=== PATIENT | female | born 1945 | race Caucasian/White ===

== ENCOUNTER → 2016-12-18 | Outpatient (CLI) | payer BC ==
[~2016-12-18] MED LIST: BRIN3SUS OPL; CHOL100027 PO; LATA0.009 OPB; TIMO0.05 OPL
[2016-12-18 09:58] LABS: ESTIMATED AVERAGE GLUCOSE 120 mg/dl; HA1C FLAG Normal (Normal)
== END | disposition home or self-care (01) ==
LOC: C.LAB1850 08:25
PROVIDERS: ATTEND Internal Medicine
DX: R73.01 Impaired fasting glucose (principal)

== ENCOUNTER → 2017-03-07 | Day surgery (SDC) | payer BC ==
[2017-02-28 08:10] VITALS: Ht 170.2 cm; Wt 61.4 kg
[~2017-03-07] VITALS: Ht 170.2 cm; Wt 61.4 kg
[~2017-03-07] MED LIST changes: -BRIN3SUS OPL; +LIDOCAINE HCL 2% 2 ML VIAL (20MG/ML) ONE; +PROPOFOL IV EMULSION 10 MG/ML 20 ML VIAL IV ONE; +SODIUM CHLORIDE 0.9% 500ML 500 ML IV ONE; +[UNRECOGNIZED DRUG - OTHER] INH
--- NOTE | 2017-03-07 10:25 | Endo History and Physical ---
History & Physical Date of Service: Mar 07, 2017. Chief Complaint: Screening Referring Physician: Dr. Naqvi History of Present Illness 71 yo CF who presents for screening colonoscopy. Past Surgical History Hx Cardiac Surgery: No Hx Internal Defibrillator: No Hx Pacemaker: No Hx Abdominal Surgery: No Hx of Implantable Prosthesis: No Hx Post-Op Nausea and Vomiting: No Hx Cancer Surgery: Yes (BILATERAL MASTECTOMY) Hx Thoracic Surgery: No Hx Orthopedic: No Hx Urinary Tract Surgery: No Family History None Social History Smoking Status: Former Smoker Hx Substance Use: No Hx Alcohol Use: Yes (2 GLASSES/DAY) Allergies Coded Allergies: Beef (Verified Allergy, Unknown, HIVES, 02/28/17) No Known Drug Allergy (Verified Allergy, Unknown, ., 02/28/17) Pork (Verified Allergy, Unknown, HIVES, 02/28/17) Uncoded Allergies: SIMBRINZA (Allergy, Unknown, BLOOD SHOT EYES, 02/28/17) Current Medications Reported Home Medications Medications Dose Route/Sig Max Daily Dose Days Date Category [Asthma Care] 1 Puff INH DIRECTED PRN 02/28/17 Reported Vitamin D 1000 Unit (Cholecalciferol) 1,000 Unit Cap 2,000 Inter.unit PO QAM 01/27/16 Reported Xalatan 0.005% Oph Miri (Latanoprost) 0.005 % Miri 1 Drops OPB HS 01/27/16 Reported Timoptic 0.25% Oph (Timolol Maleate (Ophth)) 0.25 % Miri 1 Drop OPL BID 01/27/16 Reported Vital Signs Weight (Kilograms): 61.36 Height (Feet): 5 Height (Inches): 7 Physical Exam General Appearance: WD/WN, no apparent distress Respiratory/Chest: Auscultation: breath sounds normal Cardiovascular: Heart Auscultation: RRR Abdomen: Bowel Sounds: normal Inspection & Palpation: soft, non-distended, no tenderness, guarding & rebound Assessment and Plan Assessment: 71 yo CF who presents for screening colonoscopy. Plan: Proceed with colonoscopy.
--- NOTE | 2017-03-07 12:22 | GI REPORT ---
Procedure Date: 03/07/2017 11:47 AM Procedure: Colonoscopy Indications: Screening for colorectal malignant neoplasm Medicines: Monitored Anesthesia Care Complications: No immediate complications. Estimated Blood Loss: Estimated blood loss: none. Procedure: Pre-Anesthesia Assessment: - Prior to the procedure, a History and Physical was performed, and patient medications and allergies were reviewed. The patient's tolerance of previous anesthesia was also reviewed. The risks and benefits of the procedure and the sedation options and risks were discussed with the patient. All questions were answered, and informed consent was obtained. Prior Anticoagulants: The patient has taken no previous anticoagulant or antiplatelet agents. ASA Grade Assessment: II - A patient with mild systemic disease. After reviewing the risks and benefits, the patient was deemed in satisfactory condition to undergo the procedure. After I obtained informed consent, the scope was passed under direct vision. Throughout the procedure, the patient's blood pressure, pulse, and oxygen saturations were monitored continuously. The scope was introduced through the anus and advanced to the terminal ileum. The colonoscopy was performed without difficulty. The patient tolerated the procedure well. The quality of the bowel preparation was good. The terminal ileum, ileocecal valve, appendiceal orifice, and rectum were photographed. Findings: Two sessile polyps were found in the sigmoid colon and in the ascending colon. The polyps were 3 to 5 mm in size. These polyps were removed with a cold snare. Resection and retrieval were complete. Multiple small-mouthed diverticula were found in the sigmoid colon. Non-bleeding internal hemorrhoids were found during retroflexion. The hemorrhoids were small. Impression: - Two 3 to 5 mm polyps in the sigmoid colon and in the ascending colon, removed with a cold snare. Resected and retrieved. - Diverticulosis in the sigmoid colon. - Non-bleeding internal hemorrhoids. Recommendation: - Resume previous diet. - Continue present medications. - Repeat colonoscopy for surveillance based on pathology results. - Return to primary care physician as previously scheduled. Jm Dickey, DO 03/07/2017 12:21:42 PM This report has been signed electronically. Note Initiated On: 03/07/2017 11:47 AM I attest to the content of the Intraoperative Record and orders documented therein, exceptions below
--- NOTE | 2017-03-07 12:23 | Discharge Instructions ---
Endoscopy Patient Instructions Date / Procedure(s) Performed Mar 07, 2017. Colonoscopy Allergy Information Coded Allergies: Beef (Verified Allergy, Unknown, HIVES, 02/28/17) No Known Drug Allergy (Verified Allergy, Unknown, ., 02/28/17) Pork (Verified Allergy, Unknown, HIVES, 02/28/17) Uncoded Allergies: SIMBRINZA (Allergy, Unknown, BLOOD SHOT EYES, 02/28/17) Discharge Date / Findings Mar 07, 2017. Colon polyps Diverticulosis Internal hemorrhoids Medication Instructions OK to resume all medications today as prescribed Reported Home Medications Medications Dose Route/Sig Max Daily Dose Days Date Category [Asthma Care] 1 Puff INH DIRECTED PRN 02/28/17 Reported Vitamin D 1000 Unit (Cholecalciferol) 1,000 Unit Cap 2,000 Inter.unit PO QAM 01/27/16 Reported Xalatan 0.005% Oph Miri (Latanoprost) 0.005 % Miri 1 Drops OPB HS 01/27/16 Reported Timoptic 0.25% Oph (Timolol Maleate (Ophth)) 0.25 % Miri 1 Drop OPL BID 01/27/16 Reported Provider Instructions Activity Restrictions - No exercising or heavy lifting for 24 hours. - Do not drink alcohol the day of the procedure. - Do not drive a car or operate machinery until the day after the procedure. - Do not make any important decisions or sign important papers in 24 hours after the procedure. Following Day: - Return to full activity which may include returning to work/school. Diet Start your diet with liquids and light foods (jello, soup, juice, toast). Then eat your usual diet if not nauseated. Treatment For Common After Affects For mild abdominal pain, bloating, or excessive gas: - Rest - Eat lightly - Lie on right side Follow-Up Information Follow-up with Dr Cruz as scheduled Anesthesia Information What You Should Know You have had a procedure that required some medicine to reduce anxiety and discomfort. This treatment is called moderate sedation. After receiving the treatment, you may be sleepy, but you will be able to breathe on your own. The effects of the treatment may last for several hours. Follow these instructions along with Activity/Diet recommendations noted above: * Do NOT do anything where dizziness or clumsiness would be dangerous. * Rest quietly at home today, then you can be up and about tomorrow. * Have a responsible person stay with you the rest of today. * You may have had an I.V. today. If so, you may take the dressing off later today. Recommendations Call your doctor if: * Trouble breathing * Continuous vomiting for more than 24 hours * Temperature above 101 degrees * Severe abdominal pain or bloating * Pain not relieved by pain medicine ordered * There is increased drainage or redness from any incision * A large amount of rectal bleeding greater than 2-3 tablespoons. (If you had a polyp/s removed or have hemorrhoids, a small amount of blood - from the rectum is to be expected.) * You have any unanswered questions or concerns. IN THE EVENT OF A SERIOUS EMERGENCY, GO TO THE NEAREST EMERGENCY ROOM Your discharge instructions were prepared by provider Jm Dickey. Patient Instructions Signature Page Rylee Flynn Patient (or Guardian) Signature/Date: I have read and understand the instructions given to me by my caregivers. Caregiver/RN/Doctor Signature/Date: The above-named patient and/or guardian has received patient instructions on this date. + Original Patient Signature Page (only) stays with chart. Please make copy for patient.
--- NOTE | 2017-03-07 12:41 | Anesthesiology Progress Note ---
Anesthesia Post Op Note Date & Time Mar 07, 2017 at 12:41 Vital Signs Pain Intensity: 0 Vital Signs Past 12 Hours Date Time Temp Pulse Resp B/P (MAP) Pulse Ox O2 Delivery O2 Flow Rate FiO2 03/07/17 12:33 70 18 149/80 (103) 97 Room Air 03/07/17 12:18 89 16 113/69 (84) 97 Room Air 03/07/17 10:31 36.5 73 20 162/71 (101) 98 Room Air Notes Mental Status: alert / awake / arousable, participated in evaluation Nausea / Vomiting: adequately controlled Pain: adequately controlled Airway Patency, RR, SpO2: stable & adequate BP & HR: stable & adequate Hydration State: stable & adequate Anesthetic Complications: no major complications apparent
[2017-03-07 12:46] VITALS: BP 130/96; PULSE 68; O2SAT 98
== END | disposition home or self-care (01) ==
LOC: C.GI 09:36
PROVIDERS: ATTEND Internal Medicine
DX: Z12.11 Encounter for screening for malignant neoplasm of colon (principal); D12.2 Benign neoplasm of ascending colon; D12.5 Benign neoplasm of sigmoid colon; K57.30 Diverticulosis of large intestine without perforation or abscess without bleeding; K64.8 Other hemorrhoids; Z87.891 Personal history of nicotine dependence; Z79.899 Other long term (current) drug therapy

== ENCOUNTER 2021-01-04 15:58 | Observation (INO) ==
--- NOTE | 2021-01-04 16:18 | Emergency Department Note ---
Impression & Plan Pulmonary emboli, DVT (deep venous thrombosis) ED Provider Note NAME: CHEYENNE CAMPUZANO AGE: 75 SEX: F : 1945 ARRIVES VIA: Walk-In INFORMANT: Patient, ED PROVIDER(S): Ludwin Kumar MD Chief Complaint: DrKristina Referral, recently diagnosed DVT HPI: Patient does present with concern for recently diagnosed DVT. The patient has had 4 days of some right calf pain. The patient states it is aching localized to the calf and nonradiating. Patient's pain is worse with palpation or ambulation. The patient denies any recent surgeries, procedures. Patient denies any prior history of DVT. The patient has had some associated shortness of breath. The patient denies any chest pains. Patient is a non-smoker and is vaccinated for Covid. Patient denies any upper respiratory or infectious symptoms. Shortness of breath is somewhat exertional in nature. Patient did have an outpatient ultrasound today and was subsequently referred here for further evaluation and treatment. ROS: See HPI for pertinent positives and negatives. A total of 10 systems were reviewed and otherwise negative. Past medical history: See below Surgical history: See below Social history: See below Physical Exam: GENERAL: NAD, wearing a mask, non-toxic. EYE EXAM: Normal conjunctiva. PERRL, no anisocoria and EOM's grossly intact w/o pain. NECK: Supple, no nuchal rigidity, no adenopathy, non-tender. No signs of meningismus. LUNGS: Clear to auscultation. Normal chest wall mechanics. HEART: NSR, no MRG. ABDOMEN: Abdomen soft, non-tender, normo-active bowel sounds, no masses, no rebound or guarding. BACK: No CVA TTP. SKIN: No rashes and no bruising. UPPER EXTREMITIES: Upper extremities are grossly normal. LOWER EXTREMITIES: Grossly normal, no edema. Mild pain to the right calf, compartments are soft and neurovascular intact distally. NEURO EXAM: A&O x3, cranial nerves II-XII grossly intact, normal speech, moves all 4 extremities on command w/o issue. Differential diagnoses: Reactive airway disease, pneumonia, pneumothorax, COPD, CHF, infections, cardiac ischemia, pulmonary embolism, musculoskeletal, gastrointestinal, as well as other pathologies. Course: Patient was seen and evaluated the bedside. Full history physical exam was performed. EKG interpreted by me Normal sinus rhythm, rate of 85, normal intervals, normal axis, no ST changes. Imaging Studies: The patient's outpatient [facility] heart and vascular Silas venous duplex imaging of the bilateral lower extremities showed Right le. Acute, nonocclusive DVT identified in the common femoral and proximal femoral veins. Acute, and occlusive DVT identified in the mid and distal femoral, popliteal veins as well as both of the gastrocnemius veins at the popliteal foci and in the proximal and mid calf, and both of the posterior tibial veins in the proximal, mid and distal calf/ankle and in both of the peroneal veins in the proximal, mid and distal calf/ankle. 2. The great and small saphenous veins are patent without thrombosis. Left le. Chronic, nonocclusive DVT in the gastrocnemius vein. 2. No evidence of further DVT identified. Cardiac monitoring: An order was placed for continuous cardiac monitoring. The monitor shows a rate of 92 with sinus rhythm. MDM: Patient was seen due to concern for shortness of breath and recently diagnosed DVT. The patient did have blood work completed along with CT angiography of the chest. EKG is unremarkable. Patient has a white count H&H and platelet count. Patient's kidney function is unremarkable. Covid negative. Patient CT angiography did show concern for bilateral PEs. These are small nonocclusive segmental and subsegmental. I did convey these findings to the patient. Heparin was ordered. I did speak with Dr. Sorto the patient was admitted to the medicine service. Critical Care: I have personally spent 46 minutes of critical care time in direct management of this patient. This includes bedside care, interpretation of diagnostic studies, and testing, discussion with consultants, patient, and family members, and other require inpatient management activities. This 46 minutes is in excess of all separately billable procedures. 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 Verified 01/04/21 17:11 Pork Allergy Unknown HIVES Uncoded 01/04/21 17:11 SIMBRINZA Allergy Unknown BLOOD SHOT Uncoded 01/04/21 17:11 EYES RED MEAT Allergy Hives Uncoded 01/04/21 17:12 Home Meds Home Medications Medication Instructions Recorded Confirmed latanoprost 0.005 % eye drops, 1 drp OPB HS 05/06/19 01/04/21 emulsion (Xelpros) calcium carbonate-vitamin D3 600 1 cap PO DAILY 01/04/21 01/04/21 mg calcium-200 unit capsule (Calcium 600 + D(3)) dorzolamide 22.3 mg-timolol 6.8 1 drp OPB BID 01/04/21 01/04/21 mg/mL eye drops methazolamide 50 mg tablet 50 mg PO TID 01/04/21 01/04/21 Results & Data (ED) Vital Signs Vital Signs - 24 hr 01/04/21 16:06 01/04/21 17:30 01/04/21 17:41 Temperature 36.6 C Temperature Source Temporal Artery Scan Pulse Rate 97 H 85 Pulse Rate from SpO2 Sensor 84 Respiratory Rate 16 20 Respiratory Effort / Characteristics Non-Labored Respiratory Depth Normal Blood Pressure 163/87 H Blood Pressure Mean 112 Pulse Oximetry 96 100 Oxygen Delivery Method Room Air Room Air Room Air Sepsis Recent Fever Within 48 Hours No Sepsis New/Unexplained Change in Mental Status No Sepsis Action Taken by Nursing No Action Required 01/04/21 17:59 01/04/21 18:00 01/04/21 18:36 Temperature Temperature Source Pulse Rate 118 H 110 H 93 H Pulse Rate from SpO2 Sensor Respiratory Rate 14 27 H 21 Respiratory Effort / Characteristics Respiratory Depth Blood Pressure 152/80 H Blood Pressure Mean 104 Pulse Oximetry 96 Oxygen Delivery Method Room Air Room Air Room Air Sepsis Recent Fever Within 48 Hours Sepsis New/Unexplained Change in Mental Status Sepsis Action Taken by Nursing 01/04/21 19:00 01/04/21 19:31 Temperature Temperature Source Pulse Rate 90 95 H Pulse Rate from SpO2 Sensor 90 92 H Respiratory Rate 24 24 Respiratory Effort / Characteristics Respiratory Depth Blood Pressure 155/73 H Blood Pressure Mean 100 Pulse Oximetry 99 100 Oxygen Delivery Method Sepsis Recent Fever Within 48 Hours Sepsis New/Unexplained Change in Mental Status Sepsis Action Taken by Detention Medications Current Medication List: was personally reviewed by me Laboratory Data Attestation: I reviewed the patient's lab results. Result diagrams: 01/04/21 17:29 01/04/21 17:29 Lab Results 01/04/21 01/04/21 01/04/21 Range/Units 17:29 17:29 17:29 WBC 8.60 (4.8-10.8) K/uL RBC 4.66 (4.2-5.4) M/uL Hgb 13.7 (12.0-16.0) g/dL POC Hgb (12.0-16.0) g/dl Hct 41.4 (37-47) % POC Hct (37-47) % MCV 88.8 (80-100) fL MCH 29.4 (25-34) pg MCHC 33.1 (32-36) g/dL RDW Std Deviation 40.4 (36.4-46.3) fL RDW Coeff of Mark 12.7 (11.5-14.5) % Plt Count 251 (130-400) K/uL MPV 9.7 (7.4-10.4) fL Immature Gran % (Auto) 0.1 % Neut % (Auto) 70.4 % Lymph % (Auto) 19.7 % Henderson % (Auto) 7.1 % Eos % (Auto) 2.6 % Baso % (Auto) 0.1 % Neut # (Auto) 6.06 (1.4-6.5) K/uL Lymph # (Auto) 1.69 (1.2-3.4) K/uL Henderson # (Auto) 0.61 H (0.11-0.59) K/uL Eos # (Auto) 0.22 (0-0.5) K/uL Baso # (Auto) 0.01 (0-0.2) K/uL Immature Gran # (Auto) 0.01 (0.00-0.02) K/uL PT 10.3 (9.0-12.0) Seconds INR 1.0 (0.9-1.1) APTT 26.5 (21.0-31.0) Seconds PTT Ratio 1.0 POC Sodium (135-144) mmol/L Sodium 138 (136-145) mmol/L POC Potassium (3.3-5.0) mmol/L Potassium 3.8 (3.5-5.1) mmol/L POC Chloride (101-112) mmol/L Chloride 110 H (98-107) mmol/L Carbon Dioxide 22 (21-32) mmol/L POC Total CO2 (24-31) mmol/L Anion Gap 6.0 (3-11) POC Anion Gap (16-25) mmol/L POC BUN (7-18) mg/dl BUN 13 (7-18) mg/dl Creatinine 0.77 (0.6-1.2) mg/dl POC Creatinine (0.6-1.3) mg/dl Est Cr Clr Drug Dosing 58.1 ml/min Est GFR ( Amer) 86.3 ml/min Est GFR (Non-Af Amer) 74.5 ml/min BUN/Creatinine Ratio 17.1 (10-20) Glucose 130 H (70-99) mg/dl POC Glucose (other) (70-99) mg/dl Calcium 8.7 (8.5-10.1) mg/dl POC Ioniz Calcium Meliton (1.12-1.32) mmol/l Total Bilirubin 0.3 (0.2-1) mg/dl AST 12 L (15-37) U/L ALT 11 L (12-78) U/L Alkaline Phosphatase 53 (45-117) U/L Troponin I < 0.015 (0-0.045) ng/ml Total Protein 7.1 (6.4-8.2) gm/dl Albumin 3.3 L (3.4-5.0) gm/dl Globulin 3.8 (2.5-4.0) gm/dl Albumin/Globulin Ratio 0.9 (0.9-2) COVID-19 Eval Order SARS-CoV-2 (PCR) (Negative) 01/04/21 01/04/21 01/04/21 Range/Units 17:29 17:29 17:42 WBC (4.8-10.8) K/uL RBC (4.2-5.4) M/uL Hgb (12.0-16.0) g/dL POC Hgb 14.3 (12.0-16.0) g/dl Hct (37-47) % POC Hct 42 (37-47) % MCV (80-100) fL MCH (25-34) pg MCHC (32-36) g/dL RDW Std Deviation (36.4-46.3) fL RDW Coeff of Mark (11.5-14.5) % Plt Count (130-400) K/uL MPV (7.4-10.4) fL Immature Gran % (Auto) % Neut % (Auto) % Lymph % (Auto) % Henderson % (Auto) % Eos % (Auto) % Baso % (Auto) % Neut # (Auto) (1.4-6.5) K/uL Lymph # (Auto) (1.2-3.4) K/uL Henderson # (Auto) (0.11-0.59) K/uL Eos # (Auto) (0-0.5) K/uL Baso # (Auto) (0-0.2) K/uL Immature Gran # (Auto) (0.00-0.02) K/uL PT (9.0-12.0) Seconds INR (0.9-1.1) APTT (21.0-31.0) Seconds PTT Ratio POC Sodium 139 (135-144) mmol/L Sodium (136-145) mmol/L POC Potassium 3.9 (3.3-5.0) mmol/L Potassium (3.5-5.1) mmol/L POC Chloride 106 (101-112) mmol/L Chloride (98-107) mmol/L Carbon Dioxide (21-32) mmol/L POC Total CO2 20 L (24-31) mmol/L Anion Gap (3-11) POC Anion Gap 19.0 (16-25) mmol/L POC BUN 13 (7-18) mg/dl BUN (7-18) mg/dl Creatinine (0.6-1.2) mg/dl POC Creatinine 0.6 (0.6-1.3) mg/dl Est Cr Clr Drug Dosing ml/min Est GFR ( Amer) ml/min Est GFR (Non-Af Amer) ml/min BUN/Creatinine Ratio (10-20) Glucose (70-99) mg/dl POC Glucose (other) 133 H (70-99) mg/dl Calcium (8.5-10.1) mg/dl POC Ioniz Calcium Meliton 1.22 (1.12-1.32) mmol/l Total Bilirubin (0.2-1) mg/dl AST (15-37) U/L ALT (12-78) U/L Alkaline Phosphatase (45-117) U/L Troponin I (0-0.045) ng/ml Total Protein (6.4-8.2) gm/dl Albumin (3.4-5.0) gm/dl Globulin (2.5-4.0) gm/dl Albumin/Globulin Ratio (0.9-2) COVID-19 Eval Order Covid19 at [facility] SARS-CoV-2 (PCR) NEGATIVE (Negative) Administered Medications Heparin Sodium/Dextrose (Heparin Sodium/Dextrose) 25,000 units in 500 mls @ 22 mls/hr IV .[id number]; Protocol Stop: 02/03/21 18:59 Last Admin: 01/04/21 19:37 Dose: 1,100 units/hr, 22 mls/hr Documented by: [id number] Cosigned by: [id number] Discontinued Medications Heparin Sodium (Porcine) (Heparin Sod (Porcine) 1000 Unit/Ml) 5,000 units IV NOW ONE Stop: 01/04/21 19:16 Last Admin: 01/04/21 19:39 Dose: 5,000 units Documented by: [id number] Cosigned by: [id number] Heparin Sodium/Dextrose (Heparin Iv Adult Wt-Based Standard With Bolus Protocol) 1 ea IV NOW STA; Protocol Stop: 01/04/21 18:38 Last Admin: 01/04/21 19:37 Dose: 1 ea Documented by: [id number] Sodium Chloride (Nss) 500 mls @ 999 mls/hr IV .[id number] STA Stop: 01/04/21 17:02 Last Infusion: 01/04/21 19:11 Dose: 0 mls/hr Documented by: [id number] Admin: 01/04/21 18:41 Dose: 999 mls/hr Documented by: [id number] Ioversol (Optiray 320 125ml) 118 ml IV ONCE ONE Stop: 01/04/21 17:54 Last Admin: 01/04/21 17:54 Dose: 118 ml Documented by: [id number] Imaging Data Radiologist's Impression: Chest CTA 01/04/21 16:32 CT angio chest PE protocol CT DOSE: 259.53 mGy.cm HISTORY: 75 years-old Female with Dyspnea, RLE DVT dx'ed today. Acute shortness of breath TECHNIQUE: Multiple CTA images of the chest were obtained after the intravenous administration of 118 ml Optiray. Coronal and sagittal MIPS were obtained from the axial data set and were submitted for review. All measurements were obtained according to NASCET criteria. A dose lowering technique was utilized adhering to the principles of ALARA. COMPARISON: None. FINDINGS: CTA: Heart is normal in size. There is no pericardial effusion. Atherosclerosis of the aorta without aneurysm or dissection. Satisfactory opacification the pulmonary arterial tree. There are a few tiny nonocclusive segmental and reddy bsegmental pulmonary emboli the bilateral lungs (please see bookmarks). No central pulmonary emboli identified. CT CHEST: Heterogeneous thyroid. 9 mm hypodense nodule is noted inferior to the left thyroid, possibly an exophytic thyroid nodule. No adenopathy. No pneumothorax, pleural effusion, airspace consolidation or overt pulmonary edema. There are no suspicious pulmonary nodules or masses identified. Mild biapical pleural- parenchymal scarring. Mild bronchial wall thickening. The central airways are patent. No acute process of the imaged upper abdomen. Tiny hiatal hernia. Unremarkable soft tissues. There is no acute fracture. There are a few healed chronic bilateral rib fractures. IMPRESSION: 1. Tiny nonocclusive bilateral segmental and subsegmental pulmonary emboli. 2. No pleural effusion, airspace consolidation or adenopathy. 3. Tiny hiatal hernia. ACT 112: Negative or not required by law. The above report was generated using voice recognition software. It may contain grammatical, syntax or spelling errors. Electronically signed by: López Jaeger M.D. 01/04/2021 6:29 PM Discharge Plan Visit Data Chief Complaint: Leg Injury/Pain Stated Complaint: PAIN IN RIGHT LEG ED Provider: Ludwin Kumar Discharge Problem: Pulmonary emboli, DVT (deep venous thrombosis) Patient Disposition: Admitted As Inpatient Condition: Good Prescriptions Prescriptions: No Action Xelpros 0.005 % Drops, Emulsion 1 drp OPB HS RF: 0 methazolamide 50 mg tablet 50 mg PO TID RF: 0 dorzolamide-timolol 22.3-6.8 mg/mL drops 1 drp OPB BID RF: 0 Calcium 600 + D(3) 600 mg calcium- 200 unit Capsule 1 cap PO DAILY RF: 0 Referrals Referrals: PCP,NO [Physician] -
[2021-01-04] MEDS ORDERED: SODIUM CHLORIDE 0.9% 500 ML IV STA (16:32)
[2021-01-04 17:47] LABS: Basophils # (auto) 0.01 K/uL (0-0.2); Basophils % (auto) 0.1 %; Eosinophils # (auto) 0.22 K/uL (0-0.5); Eosinophils % (auto) 2.6 %; Hematocrit (blood only) 41.4 % (37-47); Hemoglobin 13.7 g/dL (12.0-16.0); Immature Granulocytes # (auto) 0.01 K/uL (0.00-0.02); Immature Granulocytes % (auto) 0.1 %; Lymphocytes # (auto) 1.69 K/uL (1.2-3.4); Lymphocytes % (auto) 19.7 %; Mean Corpuscular Hemoglobin 29.4 pg (25-34); Mean Corpuscular Hgb Conc 33.1 g/dL (32-36); Mean Corpuscular Volume 88.8 fL (80-100); Mean Platelet Volume 9.7 fL (7.4-10.4); Monocytes # (auto) 0.61 K/uL (0.11-0.59); Monocytes % (auto) 7.1 %; Neutrophils # (auto) 6.06 K/uL (1.4-6.5); Neutrophils % (auto) 70.4 %; Platelet Count 251 K/uL (130-400); RDW Coefficient of Variation 12.7 % (11.5-14.5); RDW Standard Deviation 40.4 fL (36.4-46.3); Red Blood Count 4.66 M/uL (4.2-5.4)
[2021-01-04] MEDS ORDERED: OPTIRAY 320 125ml IV ONE (17:53)
[2021-01-04 17:54] LABS: iSTAT Creatinine 0.6 mg/dl (0.6-1.3); iSTAT Hemoglobin 14.3 g/dl (12.0-16.0); iSTAT Ionized Calcium 1.22 mmol/l (1.12-1.32); iSTAT Potassium 3.9 mmol/L (3.3-5.0)
[2021-01-04 18:03] LABS: Alanine Aminotransferase 11 U/L (12-78); Albumin Level 3.3 gm/dl (3.4-5.0); Aspartate Aminotransferase 12 U/L (15-37); BUN Creatinine Ratio 17.1 (10-20); Blood Urea Nitrogen 13 mg/dl (7-18); Calcium 8.7 mg/dl (8.5-10.1); Carbon Dioxide 22 mmol/L (21-32); Chloride 110 mmol/L (98-107); Creatinine Clr Calc Pharmacy 58.1 ml/min; Est GFR (African American) 86.3 ml/min; Est GFR (Non-African American) 74.5 ml/min; Glucose 130 mg/dl (70-99); Potassium 3.8 mmol/L (3.5-5.1); Sodium 138 mmol/L (136-145)
[2021-01-04 18:04] LABS: Partial Thromboplastin Time 26.5 Seconds (21.0-31.0); Prothrombin Time 10.3 Seconds (9.0-12.0)
[2021-01-04 18:08] LABS: Albumin Globulin Ratio 0.9 (0.9-2); Alkaline Phosphatase 53 U/L (45-117); Bilirubin,Total 0.3 mg/dl (0.2-1); Globulin 3.8 gm/dl (2.5-4.0); Total Protein 7.1 gm/dl (6.4-8.2); Troponin I < 0.015 ng/ml (0-0.045)
--- NOTE | 2021-01-04 18:30 | CT Scan Report ---
CT angio chest PE protocol CT DOSE: 259.53 mGy.cm HISTORY: 75 years-old Female with Dyspnea, RLE DVT dx'ed today. Acute shortness of breath TECHNIQUE: Multiple CTA images of the chest were obtained after the intravenous administration of 118 ml Optiray. Coronal and sagittal MIPS were obtained from the axial data set and were submitted for review. All measurements were obtained according to NASCET criteria. A dose lowering technique was u tilized adhering to the principles of ALARA. COMPARISON: None. FINDINGS: CTA: Heart is normal in size. There is no pericardial effusion. Atherosclerosis of the aorta without aneur ysm or dissection. Satisfactory opacification the pulmonary arterial tree. There are a few tiny nonoc clusive segmental and subsegmental pulmonary emboli the bilateral lungs (please see bookmarks). No ce ntral pulmonary emboli identified. CT CHEST: Heterogeneous thyroid. 9 mm hypodense nodule is noted inferior to the left thyroid, possibly an exoph ytic thyroid nodule. No adenopathy. No pneumothorax, pleural effusion, airspace consolidation or over t pulmonary edema. There are no suspicious pulmonary nodules or masses identified. Mild biapical pleu ral-parenchymal scarring. Mild bronchial wall thickening. The central airways are patent. No acute process of the imaged upper abdomen. Tiny hiatal hernia. Unremarkable soft tissues. There is no acute fracture. There are a few healed chronic bilateral rib fractures. IMPRESSION: 1. Tiny nonocclusive bilateral segmental and subsegmental pulmonary emboli. 2. No pleural effusion, airspace consolidation or adenopathy. 3. Tiny hiatal hernia. ACT 112: Negative or not required by law. The above report was generated using voice recognition software. It may contain grammatical, syntax o r spelling errors. Electronically signed by: López Jaeger M.D. 01/04/2021 6:29 PM
[2021-01-04] MEDS ORDERED: Heparin IV Adult Wt-Based Standard WITH Bolus Protocol IV STA (18:37)
[2021-01-04] MEDS ORDERED: HEPARIN SOD (PORCINE) 1000 UNIT/ML IV ONE ×2 (18:52→19:15)
[2021-01-04] MEDS ORDERED: HEPARIN SODIUM/DEXTROSE 25,000 UNITS/500 ML BAG IV SCH (19:00)
--- NOTE | 2021-01-04 19:03 | History & Physical Report ---
Date of Service January 04, 2021 Assessment & Plan (1) Pulmonary emboli: Plan: Unclear etiology, can certainly consider occult neoplasm Placed in monitored observation Heparin drip started by ER physician Will check 2D echo but patient shows no signs or symptoms of right heart strain If negative patient comfortable, can consider transitioning to NOAC in the morning with discharge Can review routine cancer screening with primary care physician on follow-up (2) Glaucoma: Plan: Continue multiple eyedrops as ordered History of Present Illness Chief Complaint: R DVT Primary Care Provider: Sandra Granados MD This is a 75-year-old female with past medical, who is referred here by her primary physician secondary to extensive DVT in the right lower extremity. Patient is pleasant a good historian. Patient tells me that over the past 4 days she has been having some pain in her leg. She is noted some cramping in her distal right lower extremity around the gastroc/soleus. She did not notice any swelling. This gradually worsened over 4 days. It seemed to worsen with activity and standing. Patient became concerned today and went to her primary care physician who subsequently sent her for lower extremity Dopplers. The patient did not have the report but told me that was positive essentially in the entire leg. She was told by her primary care physician to come to the emergency room. In the ER, work-up included a CT angiogram which showed small bilateral pulmonary emboli. Patient is now being admitted for further treatment. Patient relates she has no risk factors for DVT or PE. No recent car or plane trips. Not on hormone treatment. She does have a remote history of breast cancer but takes nothing for this. She denies any chest pain, shortness breath, dyspnea on exertion. Allergies Allergy/AdvReac Type Severity Reaction Status Date / Time Beef Containing Products Allergy Unknown HIVES Verified 01/04/21 17:11 No Known Drug Allergies Allergy Unknown . Verified 01/04/21 17:11 Pork Allergy Unknown HIVES Uncoded 01/04/21 17:11 SIMBRINZA Allergy Unknown BLOOD SHOT Uncoded 01/04/21 17:11 EYES RED MEAT Allergy Hives Uncoded 01/04/21 17:12 Home Medications Medication Instructions Recorded Confirmed Type latanoprost 0.005 % eye drops, 1 drp OPB HS 05/06/19 01/04/21 History emulsion (Xelpros) calcium carbonate-vitamin D3 600 1 cap PO DAILY 01/04/21 01/04/21 History mg calcium-200 unit capsule (Calcium 600 + D(3)) dorzolamide 22.3 mg-timolol 6.8 1 drp OPB BID 01/04/21 01/04/21 History mg/mL eye drops methazolamide 50 mg tablet 50 mg PO TID 01/04/21 01/04/21 History Past Med/Surg History Medical History (Updated 01/04/21 @ 19:02 by Tobias Sorto DO) Breast cancer 18 YRS AGO Migraine HX Osteoarthritis Surgical History History of breast biopsy History of colonoscopy History of mastectomy BILAT History of tooth extraction ONE WISDOM TOOTH Social History Smoking Status: Never smoker Second Hand Exposure: Yes ( CHILD); Hx Alcohol Use: Yes Alcohol type: wine Hx Substance Use: No Preferred Language: Malaysian Communication Ability: Effective [employer] Required: No Beliefs That Will Affect Care: None Current Living Situation: Spouse Feels Safe at Home: Yes Assistive Devices: None Review of Systems Constitutional: no fever, no chills, no weakness, no weight loss and no weight gain Eyes: as per Subjective / HPI Respiratory: no cough, no chest congestion, no dyspnea and no dyspnea on exertion Cardiovascular: no chest pain, no orthopnea, no palpitations, no lightheadedness and no edema Gastrointestinal: no abdominal pain, no nausea, no vomiting, no constipation and no diarrhea/loose stools Genitourinary: no dysuria, no difficulty urinating, no urinary frequency, no urinary hesitancy, no urinary urgency and no flank pain Musculoskeletal: + myalgia (R leg pain as described); no back pain, no neck pain, no joint pain and no stiffness Integumentary: no rash Neurologic: no gait abnormality, no unsteadiness, no falls and no generalized weakness Physical Exam Constitutional: cooperative; no acute distress Neck: trachea midline, no thyromegaly Respiratory: normal respiratory effort Auscultation: lungs clear to auscultation bilaterally; no crackles, no rales, no rhonchi and no wheezes Cardiovascular: Rate/Rhythm: regular rate and regular rhythm Heart Sounds: normal S1 and normal S2 Gastrointestinal (Abdomen): Inspection/Auscultation: abdomen normal to inspection Percussion/Palpation: abdomen soft; abdomen nontender, no guarding, abdomen not rigid and no hepatosplenomegaly Musculoskeletal: no edema or tenderness of RLE Skin: no rashes, warm and dry Results & Data Results & Data ([place]) Vital Signs (Past 12 Hours) Vital Signs Temp Pulse Resp BP Pulse Ox 01/04/21 18:36 93 H 21 152/80 H 96 01/04/21 18:00 110 H 27 H 01/04/21 17:59 118 H 14 01/04/21 17:41 85 20 100 01/04/21 16:06 36.6 C 97 H 16 163/87 H 96 Laboratory Results Laboratory Results WBC 8.60 K/uL (4.8-10.8) 01/04/21 17:29 RBC 4.66 M/uL (4.2-5.4) 01/04/21 17:29 Hgb 13.7 g/dL (12.0-16.0) 01/04/21 17:29 POC Hgb 14.3 g/dl (12.0-16.0) 01/04/21 17:42 Hct 41.4 % (37-47) 01/04/21 17:29 POC Hct 42 % (37-47) 01/04/21 17:42 MCV 88.8 fL (80-100) 01/04/21 17:29 MCH 29.4 pg (25-34) 01/04/21 17:29 MCHC 33.1 g/dL (32-36) 01/04/21 17:29 RDW Std Deviation 40.4 fL (36.4-46.3) 01/04/21 17:29 RDW Coeff of Mark 12.7 % (11.5-14.5) 01/04/21 17:29 Plt Count 251 K/uL (130-400) 01/04/21 17:29 MPV 9.7 fL (7.4-10.4) 01/04/21 17:29 Immature Gran % (Auto) 0.1 % 01/04/21 17:29 Neut % (Auto) 70.4 % 01/04/21 17:29 Lymph % (Auto) 19.7 % 01/04/21 17:29 [place] % (Auto) 7.1 % 01/04/21 17: Eos % (Auto) 2.6 % 01/04/21 17: Baso % (Auto) 0.1 % 01/04/21 17: Neut # (Auto) 6.06 K/uL (1.4-6.5) 01/04/21 17: Lymph # (Auto) 1.69 K/uL (1.2-3.4) 01/04/21 17: [place] # (Auto) 0.61 K/uL (0.11-0.59) H 01/04/21 17: Eos # (Auto) 0.22 K/uL (0-0.5) 01/04/21 17: Baso # (Auto) 0.01 K/uL (0-0.2) 01/04/21: Immature Gran # (Auto) 0.01 K/uL (0.00-0.02) 01/04/21 17: PT 10.3 Seconds (9.0-12.0) 01/04/21 17: INR 1.0 (0.9-1.1) 01/04/21 17: APTT 26.5 Seconds (21.0-31.0) 01/04/21 17: PTT Ratio 1.0 01/04/21 17:29 POC Sodium 139 mmol/L (135-144) 01/04/21 17:42 Sodium 138 mmol/L (136-145) 01/04/21 17:29 POC Potassium 3.9 mmol/L (3.3-5.0) 01/04/21 17:42 Potassium 3.8 mmol/L (3.5-5.1) 01/04/21 17:29 POC Chloride 106 mmol/L (101-112) 01/04/21 17:42 Chloride 110 mmol/L (98-107) H 01/04/21 17:29 Carbon Dioxide 22 mmol/L (21-32) 01/04/21 17:29 POC Total CO2 20 mmol/L (24-31) L 01/04/21 17:42 Anion Gap 6.0 (3-11) 01/04/21 17:29 POC Anion Gap 19.0 mmol/L (16-25) 01/04/21 17:42 POC BUN 13 mg/dl (7-18) 01/04/21 17:42 BUN 13 mg/dl (7-18) 01/04/21 17:29 Creatinine 0.77 mg/dl (0.6-1.2) 01/04/21 17:29 POC Creatinine 0.6 mg/dl (0.6-1.3) 01/04/21 17:42 Est Cr Clr Drug Dosing 58.1 ml/min 01/04/21 17:29 Est GFR ( Amer) 86.3 ml/min 01/04/21 17:29 Est GFR (Non-Af Amer) 74.5 ml/min 01/04/21 17:29 BUN/Creatinine Ratio 17.1 (10-20) 01/04/21 17:29 Glucose 130 mg/dl (70-99) H 01/04/21 17:29 POC Glucose (other) 133 mg/dl (70-99) H 01/04/21 17:42 Calcium 8.7 mg/dl (8.5-10.1) 01/04/21 17:29 POC Ioniz Calcium Meliton 1.22 mmol/l (1.12-1.32) 01/04/21 17:42 Total Bilirubin 0.3 mg/dl (0.2-1) 01/04/21 17:29 AST 12 U/L (15-37) L 01/04/21 17:29 ALT 11 U/L (12-78) L 01/04/21 17:29 Alkaline Phosphatase 53 U/L (45-117) 01/04/21 17:29 Troponin I < 0.015 ng/ml (0-0.045) 01/04/21 17:29 Total Protein 7.1 gm/dl (6.4-8.2) 01/04/21 17:29 Albumin 3.3 gm/dl (3.4-5.0) L 01/04/21 17:29 Globulin 3.8 gm/dl (2.5-4.0) 01/04/21 17:29 Albumin/Globulin Ratio 0.9 (0.9-2) 01/04/21 17:29 COVID-19 Eval Order Covid19 at [facility] 01/04/21 17:29 SARS-CoV-2 (PCR) NEGATIVE (Negative) 01/04/21 17:29 Impressions Chest CTA 01/04/21 16:32 CT angio chest PE protocol CT DOSE: 259.53 mGy.cm HISTORY: 75 years-old Female with Dyspnea, RLE DVT dx'ed today. Acute shortness of breath TECHNIQUE: Multiple CTA images of the chest were obtained after the intravenous administration of 118 ml Optiray. Coronal and sagittal MIPS were obtained from the axial data set and were submitted for review. All measurements were obtained according to NASCET criteria. A dose lowering technique was utilized adhering to the principles of ALARA. COMPARISON: None. FINDINGS: CTA: Heart is normal in size. There is no pericardial effusion. Atherosclerosis of the aorta without aneurysm or dissection. Satisfactory opacification the pulmonary arterial tree. There are a few tiny nonocclusive segmental and subsegmental pulmonary emboli the bilateral lungs (please see bookmarks). No central pulmonary emboli identified. CT CHEST: Heterogeneous thyroid. 9 mm hypodense nodule is noted inferior to the left thyro id, possibly an exophytic thyroid nodule. No adenopathy. No pneumothorax, pleural effusion, airspace consolidation or overt pulmonary edema. There are no suspicious pulmonary nodules or masses identified. Mild biapical pleural- parenchymal scarring. Mild bronchial wall thickening. The central airways are patent. No acute process of the imaged upper abdomen. Tiny hiatal hernia. Unremarkable soft tissues. There is no acute fracture. There are a few healed chronic bilateral rib fractures. IMPRESSION: 1. Tiny nonocclusive bilateral segmental and subsegmental pulmonary emboli. 2. No pleural effusion, airspace consolidation or adenopathy. 3. Tiny hiatal hernia. ACT 112: Negative or not required by law. The above report was generated using voice recognition software. It may contain grammatical, syntax or spelling errors. Electronically signed by: López Jaeger M.D. 01/04/2021 6:29 PM Code Status & VTE Plan VTE Prophylaxis Plan VTE Prophylaxis will be ordered: Yes PG Care Time/CCT Total # of Minutes Spent Total Time Spent with Patient: Total time spent is greater than 50% in coordination of care (as documented) at patient's floor/unit and/or counseling patient: Coding Level of Care Code INT OBSERVATION CARE 70M LVL 3 Diagnoses Glaucoma H40.9 Pulmonary emboli I26.99
[2021-01-04] MEDS ORDERED: ONDANSETRON INJ 2 MG/ML 2 ML VIAL IV PRN (21:38)
[2021-01-04] MEDS ORDERED: ACETAMINOPHEN 325 MG TAB PO PRN (21:38)
[2021-01-04] MEDS ORDERED: PNEUMOCOCCAL POLYSACCHARIDES 25 MCG/0.5 ML VIAL/SYR IM ONE (21:55)
[2021-01-04] MEDS: DORZOLAMIDE/TIMOLOL 22.3/6.8MG/ML 10 ML BTL OPB SCH (22:17)
[2021-01-05 02:17] LABS: Partial Thromboplastin Ratio 4.5
[2021-01-05 02:46] LABS: Partial Thromboplastin Time 118.1 Seconds (21.0-31.0)
[2021-01-05 06:33] LABS: Basophils # (auto) 0.01 K/uL (0-0.2); Basophils % (auto) 0.2 %; Eosinophils # (auto) 0.29 K/uL (0-0.5); Eosinophils % (auto) 4.7 %; Hematocrit (blood only) 38.8 % (37-47); Hemoglobin 12.5 g/dL (12.0-16.0); Immature Granulocytes # (auto) 0.01 K/uL (0.00-0.02); Immature Granulocytes % (auto) 0.2 %; Lymphocytes # (auto) 2.03 K/uL (1.2-3.4); Lymphocytes % (auto) 33.1 %; Mean Corpuscular Hemoglobin 29.1 pg (25-34); Mean Corpuscular Hgb Conc 32.2 g/dL (32-36); Mean Corpuscular Volume 90.2 fL (80-100); Mean Platelet Volume 9.6 fL (7.4-10.4); Monocytes # (auto) 0.44 K/uL (0.11-0.59); Monocytes % (auto) 7.2 %; Neutrophils # (auto) 3.35 K/uL (1.4-6.5); Neutrophils % (auto) 54.6 %; Platelet Count 233 K/uL (130-400); RDW Coefficient of Variation 12.7 % (11.5-14.5); RDW Standard Deviation 41.9 fL (36.4-46.3); White Blood Count 6.13 K/uL (4.8-10.8)
[2021-01-05 06:53] LABS: Partial Thromboplastin Ratio 2.4
[2021-01-05 06:59] LABS: Partial Thromboplastin Time 63.7 Seconds (21.0-31.0)
[2021-01-05 07:12] LABS: BUN Creatinine Ratio 18.3 (10-20); Calcium 8.4 mg/dl (8.5-10.1); Creatinine Clr Calc Pharmacy 52.1 ml/min; Est GFR (African American) 98.8 ml/min; Est GFR (Non-African American) 85.2 ml/min; Potassium 3.5 mmol/L (3.5-5.1)
[2021-01-05] MEDS: DORZOLAMIDE/TIMOLOL 22.3/6.8MG/ML 10 ML BTL OPB SCH (07:48)
[2021-01-05] MEDS ORDERED: CALCIUM 600MG + VIT D 400 IU TAB PO SCH (09:00)
[2021-01-05] MEDS ORDERED: APIXABAN 5 MG TABLET PO SCH (10:45)
--- NOTE | 2021-01-05 13:16 | XCELERA ---
[id number]
--- NOTE | 2021-01-05 13:48 | Electrocardiogram Report ---
Test Reason : Blood Pressure : / mmHG Vent. Rate : 085 BPM Atrial Rate : 085 BPM P-R Int : 142 ms QRS Dur : 076 ms QT Int : 400 ms P-R-T Axes : 075 055 062 degrees QTc Int : 476 ms Poor data quality, interpretation may be adversely affected Normal sinus rhythm Normal ECG When compared with ECG of 03-JAN-2002 13:47, No significant change was found Confirmed by Sander Castillo ([id number]) on 01/05/2021 1:48:26 PM Referred By: Alicia Polanco Confirmed By:Sander Castillo
--- NOTE | 2021-01-05 14:31 | Discharge Summary ---
Date of Service January 05, 2021 Admission HPI Per Admitting Provider This is a 75-year-old female with past medical, who is referred here by her primary physician secondary to extensive DVT in the right lower extremity. Patient is pleasant a good historian. Patient tells me that over the past 4 days she has been having some pain in her leg. She is noted some cramping in her distal right lower extremity around the gastroc/soleus. She did not notice any swelling. This gradually worsened over 4 days. It seemed to worsen with activity and standing. Patient became concerned today and went to her primary care physician who subsequently sent her for lower extremity Dopplers. The patient did not have the report but told me that was positive essentially in the entire leg. She was told by her primary care physician to come to the emergency room. In the ER, work-up included a CT angiogram which showed small bilateral pulmonary emboli. Patient is now being admitted for further treatment. Patient relates she has no risk factors for DVT or PE. No recent car or plane trips. Not on hormone treatment. She does have a remote history of breast cancer but takes nothing for this. She denies any chest pain, shortness breath, dyspnea on exertion. Principal Diagnosis 1. Nonocclusive DVT involving the B/L LE 2. Bilateral occlusive pulmonary emboli Discharge Exam General: Resting comfortably in her hospital bed. Appears younger than stated age. NAD. Neck: No JVD. Negative hepatojugular reflex Cardiac: RRR with 1/6 NATASHA Lungs: CTA without W/R/R Abdomen: Normoactive X4. Soft and nontender in all quadrants. Extremities: No peripheral clubbing cyanosis or edema. No calf pain/swelling of the bilateral lower extremities. Negative Homans to the left but positive H omans' sign to the right. Neuro: A&O X4 cranial nerves II through XII are grossly intact no focal neuro deficits Skin: No obvious skin lesions or rashes Discharge Data Allergies Allergy/AdvReac Type Severity Reaction Status Date / Time Beef Containing Products Allergy Unknown HIVES Verified 01/04/21 17:11 No Known Drug Allergies Allergy Unknown . Verified 01/04/21 17:11 Pork Allergy Unknown HIVES Uncoded 01/04/21 17:11 SIMBRINZA Allergy Unknown BLOOD SHOT Uncoded 01/04/21 17:11 EYES RED MEAT Allergy Hives Uncoded 01/04/21 17:12 Consultations 01/04/21 18:50 ED Decision to Admit Stat Ordered Studies 01/04/21 16:32 CT angio chest PE protocol Stat IMPRESSION: 1. Tiny nonocclusive bilateral segmental and subsegmental pulmonary emboli. 2. No pleural effusion, airspace consolidation or adenopathy. 3. Tiny hiatal hernia. Venous Doppler done 01/04 (as an outpatient): Right le. Acute nonocclusive DVT identified in the common femoral and proximal femoral veins. Acute occlusive DVT identified in the mid and distal femoral, popliteal veins as well as both the gastrocnemius veins at the popliteal fossa and in the proximal and mid calf and both of the posterior tibial veins in the proximal, mid and distal calf/ankle and in both the peroneal veins in the proximal, mid and distal calf/ankle. 2. The great and small saphenous veins are patent without thrombosis Left le. 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 No evidence of deep or superficial vein thrombosis identified in the common femoral, deep femoral, femoral popliteal, posterior tibial, peroneal, great saphenous or small saphenous veins. Echocardiogram: EF 55 to 60% without significant valvular pathology. No right-sided heart strain. No regional wall motion abnormalities. Hospital Course (1) Pulmonary emboli: * Unprovoked * Patient does have a history of breast CA s/p mastectomy and chemotherapy. Cleared by oncology. May consider PET scan to ensure no metastasis * Otherwise, she is up-to-date with other age-appropriate cancer screening, no recent travel, no recent surgery, not on hormone replacement therapy * Was treated with a heparin drip while in house. * Remained completely asymptomatic (denies shortness of breath, dyspnea on exertion, pleurisy. She was not tachycardic, hypotensive and did not require any supplemental oxygen) * When seen on daily rounds 01/05medically hemodynamically stable for discharge to home. Will transition heparin drip to Eliquis (with first dose prior to discharge). Will need 10 mg twice daily for 1 week then transition to 5 mg twice a day * Would advise 6 months of anticoagulation therapy (treatment dose). Following 6 months, would transition to long-term prevention dosing (as this was an unprovoked PE) * Hypercoagulable panel was not obtained as it can be skewed in the setting of an acute thrombus. In addition, this was considered an unprovoked event thus long-term anticoagulation therapy recommended * Did add PPI for GI prophylaxis given age * Patient takes aspirin (at her own discretion). Recommend avoiding this due to addition of anticoagulation therapy and advanced age and risk for GI irritation * Echocardiogram done showing no evidence of right-sided heart strain * Follow-up with PCP within 7 to 10 days * Return to ED for any new or worsening symptoms (2) DVT (deep venous thrombosis): * Treatment plan as outlined above Total Time Total Time Spent Total Time Spent (In Minutes): 35 minutes Discharge Plan Discharge Items Patient Disposition: Home - Self-Care Reason For Visit: PE Discharge Diagnosis: 1. Bilateral DVT 2. Bilateral PE Condition on Discharge: Good Activity: Resume your previous activity Non-emergency contact: Primary Care Provider Call non-emergency contact if: you have any medication questions and your symptoms worsen Follow-up/Referrals: Sandra Granados MD [Primary Care Provider] - (Dr. Granados is unavailable.) Errol Fuller DO [Resident] - 01/10/21 11:00 am (Dr. Granados is unavailable. Please follow up with Dr. Fuller on Sunday01/10/21 at 11:00 am. Please arrive to the office at 10:45 am for your appointment. If you are unable to keep this appointment, please call the office to reschedule at [phone].) Diet: Regular Addtl Attending Provider Instructions: - You were hospitalized for blood clots involving the veins in both legs and the small arteries in your lungs. - You were treated with blood thinning medication while in the hospital to stabilize the clots - you are being sent home with a blood thinner to help break up these clots over time (3-6 months). - The blood thinning medication is called Eliquis. It is to be taking twice a day. You will take 10mg (2 tabs) twice a day for 7 days and then 5mg (1 tab) twice a day. I have provided a Rx for the first 30 days. Subsequent Rx's need to be provided by your PCP. Next dose of blood thinner (eliquis) is due tonight. - seeing as these clots are considered unprovoked (no apparent cause)-- I recommend LIFELONG blood thinner (however, this is at the discretion of your PCP). As discussed, can likely decrease the dose of the blood thinner to 2.5mg twice a day in 6 months (to prevent rather than to treat a clot) - In addition, you have been started on Protonix to take daily while on the blood thinner (to help PREVENT GI irritation and bleeding) - A risk of a blood thinner is bleeding; however, as discussed-- the risk of from untreated clots FAR OUTWEIGHS the risk of bleeding right now - should follow up with your Family Physician within 7 week - return to the ED for any new or worsening symptoms Pending Studies at Discharge: No Stand-Alone Forms: My [facility] [id number] Medications and DC Order Prescriptions: New Eliquis 5 mg Tablet 10 mg PO BID Qty: 90 RF: 0 pantoprazole [Protonix] 40 mg tablet,delayed release (DR/EC) 40 mg PO DAILY Qty: 30 RF: 0 Continued Xelpros 0.005 % Drops, Emulsion 1 drp OPB HS RF: 0 methazolamide 50 mg tablet 50 mg PO TID RF: 0 dorzolamide-timolol 22.3-6.8 mg/mL drops 1 drp OPB BID RF: 0 Calcium 600 + D(3) 600 mg calcium- 200 unit Capsule 1 cap PO DAILY RF: 0 Discharge Orders: Discharge Order (Routine); Ordered 01/05/21 Ordered By: Anne Hinds/Other Patient Handouts: Pulmonary Embolism Admission Data Admit Date/Time: 01/04/21 18:49 Attending Provider: Tae Plascencia Admit Provider: Tobias Sorto Primary Care Provider: Sandra Granados Other Providers: Tobias Sorto Other Interventions: Discharge Summary Assessment (RN) Last Done: 01/05/21 12:00 Coding Level of Care Code 88153 OBS Care - Discharge Diagnoses DVT (deep venous thrombosis) I82.411 Affected thrombotic vein of extremity: femoral Chronicity: acute DVT location: lower extremity Laterality: right Pulmonary emboli I26.99 Acute cor pulmonale presence: without acute cor pulmonale Chronicity: acute Pulmonary embolism type: unspecified Time Spent (min) 35
== END 2021-01-05 14:21 | disposition home or self-care (01) ==
LOC: ED 15:58 → 2S 15:58 → SUATTDRO 18:49 → 2S 21:28